=== PATIENT | male | born 1960 | race Caucasian/White ===

== ENCOUNTER → 2024-01-09 12:34 | Outpatient (REF) | payer BC, SELFPAY | LOC: PAVMRI 12:34 | PROVIDERS: ATTENDING PHYSICIAN Orthopaedic Surgery; FAMILY PHYSICIAN Registered Nurse | DX: M25.561 Pain in right knee (principal) | CPT/HCPCS: 73721 ==

== ENCOUNTER 2024-02-21 06:09 | Day surgery (SDC) | payer BC, SELFPAY ==
[2024-02-11 08:07] VITALS: BMI 28.6
[2024-02-11 08:52] LABS: % Basophils 0.6 % (0-2); % Eosinophils 3.1 % (0-6); % Immature Granulocytes 0.4 % (0-0.5); % Lymphocytes 34.4 % (20.5-51.1); % Monocytes 10.6 % (1.7-9.3); % Neutrophils 50.9 % (42.2-75.2); Absolute Eosinophils 0.2 10^3/uL (0-0.7); Absolute Lymphocytes 1.8 10^3/uL (1.2-3.4); Absolute Monocytes 0.5 10^3/uL (0.1-0.6); Absolute Neutrophils 2.6 10^3/uL (1.4-6.5); Hematocrit 42.3 % (39.0-52.0); Hemoglobin 15.2 g/dL (13.0-18.0); Mean Corp Hgb Conc. 35.9 g/dL (33.0-37.0); Mean Corpuscular Hgb 34.3 pg (27.0-31.0); Mean Corpuscular Volume 95.5 fL (80.0-94.0); Mean Platelet Volume 8.8 fL (7.4-10.4); Nucleated Red Blood Cells % 0 % (-); Platelet Count 237 10^3/uL (130-400); Red Blood Cell Count 4.43 10^6/uL (4.70-6.10); Red Cell Dist. Width 12.3 % (11.5-14.5); White Blood Cell Count 5.1 10^3/uL (4.8-10.8)
[2024-02-11 09:18] LABS: Blood Urea Nitrogen 23 mg/dl (9-20); Calcium 9.6 mg/dl (8.4-10.2); Carbon Dioxide 26 mmol/L (22-30); Chloride 105 mmol/L (98-107); Estimated Creatinine Clearance 86 ml/min; Glucose 106 mg/dl (70-99); Sodium 138 mmol/L (135-145); eGFR > 60.00
[2024-02-21] VITALS (10 sets, daily range): BP systolic 115–160; BP diastolic 75–99; BMI 28.6
[2024-02-21] MEDS: NORMOSOL-R 1000 IV (11:09)
[2024-02-21] MEDS: CELEBREX 200 MG PO (11:10)
[2024-02-21] MEDS: TYLENOL 1000 MG PO (11:10)
--- NOTE | 2024-02-21 13:16 | OR.RPT ---
Operative Report
Operative Report
DATE OF OPERATION: 02/21/2024
PREOPERATIVE DIAGNOSES: Complex medial meniscus tear, right knee
POSTOPERATIVE DIAGNOSES: Same
OPERATION PERFORMED: Surgical arthroscopy of right knee with partial medial meniscectomy
SURGEON: Mahendra Bull MD
ASSISTANTS: NA
ANESTHESIA: General
COMPLICATIONS: None
ESTIMATED BLOOD LOSS: 5mL
TOURNIQUET TIME: NA
Findings: See below
INDICATIONS: The patient presented to my office with posteromedial right knee pain. Exam showed pain over medial joint line with effusion. Xrays showed no signs of advanced arthritis. MRI showed a complex tear of the medial meniscus with displaced
fragment to meniscofemoral recess. Signs and symptoms were consistent with diagnosis of symptomatic medial meniscus tear. The patient was determined to be an appropriate candidate for surgical arthroscopy of the right knee with partial medial
meniscectomy. I discussed treatment options with the patient including both nonoperative and operative treatments. Shared decision was to proceed with surgical treatment. We reviewed the natural history of the problem, as well as the risks,
benefits, and alternatives of various treatment options. The patient understood the risks including, but were not limited to, bleeding, infection, failure to relieve pain, more pain than preop, damage to blood vessels and nerves, need for
reoperation, mechanical failure of the implants, wound healing problems, stiffness, instability, blood clot, pulmonary embolism, myocardial infarction, pneumonia, arrhythmia, CVA, and . The patient accepted these risks and wished to proceed.
PROCEDURE IN DETAIL: The patient was identified in the preoperative holding area. The operative limb was identified and marked with my initials. The patient was taken in the operating room and placed in a supine position on the operating table.
General anesthesia was performed. IV antibiotics were given. A gel pad was placed under the contralateral limb. All bony prominences were well padded. The operative limb was prepped and draped in the usual sterile fashion.
We performed a surgical time-out. The knee was injected with a solution of 20mL of 1% lidocaine with 1mg of epinepherine. The portal sites were marked and injected with local anesthetic. The skin was incised over the lateral portal site and a
trochar was introduced with care not to damage interarticular structures. The camera was inserted, and a medial portal was made under direct visualization. A diagnostic arthroscopy was performed which showed the following:
Medial compartment: Mensicus tear in posterior body-horn junction displaced into meniscotibial recess, articular cartilage showed grade 2 changes on posterior femoral condyle and tibia. Inflamed synovium in anteromedial gutter. Chondrocalcinosis of
articular cartilage
Notch: ACL/PCL intact
Lateral compartment: No signs of lateral meniscus tear, articular cartilage intact over femoral condyle and tibia plateau.
Patellofemoral compartment: Articular cartilage intact over patella and trochlea, grade I changes
Medial and lateral Gutters: No signs of loose bodies
Attention was turned to the medial compartment. A probe was used to reduce the meniscal fragment into articular space. A combination of shaver and meniscal biter were used to debride the meniscus tear to a smooth border. Approximately 70% of
meniscus was removed in the body-horn junction. Care was taken not to cause further injury to the articular cartilage or other structures. Inflamed synovium was also debrided.
The knee was drained of excess fluid. The portals were closed with 3-0 proline suture in [id number] fashion. Sterile dressings and an ai bandage were applied. The knee was injected with 10mL of 1% lidocaine with 40mg triamcinolone.
The patient awoke from anesthesia without any difficulties. The sponge and instrument counts were correct at the end of the case. I was present and participated in the entire procedure.
Kane Bull MD
== END 2024-02-21 15:00 | disposition home or self-care (01) ==
LOC: SDS 06:09
PROVIDERS: ATTENDING PHYSICIAN Orthopaedic Surgery; FAMILY PHYSICIAN Registered Nurse
DX: S83.231A Complex tear of medial meniscus, current injury, right knee, initial encounter (principal); X58.XXXA Exposure to other specified factors, initial encounter
CPT/HCPCS: 29881; 36415; 80048; 85025; 93005

== ENCOUNTER → 2024-10-31 07:20 | Outpatient (REF) | payer OTHER, SELFPAY ==
[2024-10-31 08:27] LABS: % Basophils 0.4 % (0-2); % Eosinophils 1.2 % (0-6); % Immature Granulocytes 0.2 % (0-0.5); % Lymphocytes 35.1 % (20.5-51.1); % Monocytes 10.9 % (1.7-9.3); % Neutrophils 52.2 % (42.2-75.2); Absolute Eosinophils 0.1 10^3/uL (0-0.7); Absolute Lymphocytes 1.8 10^3/uL (1.2-3.4); Absolute Monocytes 0.6 10^3/uL (0.1-0.6); Absolute Neutrophils 2.7 10^3/uL (1.4-6.5); Hematocrit 44.7 % (39.0-52.0); Mean Corp Hgb Conc. 35.8 g/dL (33.0-37.0); Mean Corpuscular Hgb 34.6 pg (27.0-31.0); Mean Corpuscular Volume 96.5 fL (80.0-94.0); Mean Platelet Volume 8.8 fL (7.4-10.4); Nucleated Red Blood Cells % 0 % (-); Platelet Count 257 10^3/uL (130-400); Red Blood Cell Count 4.63 10^6/uL (4.70-6.10); White Blood Cell Count 5.1 10^3/uL (4.8-10.8)
[2024-10-31 08:54] LABS: Blood Urea Nitrogen 20 mg/dl (9-20); Calcium 9.6 mg/dl (8.4-10.2); Carbon Dioxide 27 mmol/L (22-30); Chloride 100 mmol/L (98-107); Glucose 103 mg/dl (70-99); Potassium 4.3 mmol/L (3.5-5.1); Sodium 138 mmol/L (135-145); eGFR > 60.00
== END ==
LOC: RCS 07:20
PROVIDERS: ATTENDING PHYSICIAN Orthopaedic Surgery; FAMILY PHYSICIAN Registered Nurse
DX: Z01.818 Encounter for other preprocedural examination (principal)
CPT/HCPCS: 36415; 80048; 85025; 93005

== ENCOUNTER 2025-01-19 06:31 | Outpatient (RCR) | payer OTHER, SELFPAY | END 2025-01-19 23:59 | disposition home or self-care (01) | LOC: RPT 06:31 | PROVIDERS: ATTENDING PHYSICIAN Orthopaedic Surgery; FAMILY PHYSICIAN Registered Nurse | DX: M25.561 Pain in right knee (principal); Z73.6 Limitation of activities due to disability | CPT/HCPCS: 97110; 97140; 97161 ==

== ENCOUNTER 2025-02-16 07:24 | Outpatient (RCR) | payer OTHER, SELFPAY | END 2025-02-16 23:59 | disposition home or self-care (01) | LOC: RPT 07:24 | PROVIDERS: ATTENDING PHYSICIAN Orthopaedic Surgery; FAMILY PHYSICIAN Registered Nurse | DX: M25.561 Pain in right knee (principal); Z47.89 Encounter for other orthopedic aftercare (principal); Z73.6 Limitation of activities due to disability; M62.81 Muscle weakness (generalized) | CPT/HCPCS: 97010; 97110; 97140 ==

== ENCOUNTER 2025-03-09 16:03 | Outpatient (RCR) | payer OTHER, SELFPAY | END 2025-03-09 23:59 | disposition home or self-care (01) | LOC: RPT 16:03 | PROVIDERS: ATTENDING PHYSICIAN Orthopaedic Surgery; FAMILY PHYSICIAN Registered Nurse | DX: Z47.89 Encounter for other orthopedic aftercare (principal); M25.561 Pain in right knee; Z73.6 Limitation of activities due to disability; M62.81 Muscle weakness (generalized) | CPT/HCPCS: 97010; 97110; 97140 ==